=== PATIENT | female | born 1955 | race Caucasian/White ===

== ENCOUNTER → 2017-01-22 | Outpatient (CLI) | payer OTHER ==
[~2017-01-22] MED LIST: ATELVIA35 MG PO; ATIVAN PO; BENADRYL25 M1 PO; BRINTELLIX10 MG PO; CALCIUM + D 6001 TA1 PO; CALCIUM + D PO; CERTAGEN PO; EPIPEN0.3 MG/0.1 IM; FAMOTIDINE PO; FERROUS SULFATE PO; LORTAB 7.5-5001 TAB PO; LOVAZA1 G PO; MEDROL PO; PEN-VEE K PO; PERCOCET 10/3251 TAB PO; PERCOCET10 PO; PREDNISONE PO; PROZAC PO; PROZAC40 MG PO; REGLAN PO; TYLOX1 CAP 5/50 PO; VICODIN PO
--- NOTE | ~2017-01-22 | MR164 ---
[facility] A Service of [facility] RADIOLOGY TEXT RESULTS PATIENT: DEONTE ROSA LOCATION: [facility] : 59 UNIT #: [id number] AGE: [address]: Aubrey Delacruz MD SEX: F ORDER DR: [id number] [facility] [address] [place], [place] [address] [id number] O MR#: [id number] Acc #: [id number] NAME: DEONTE ROSA : 1955 SEX: F STUDY DATE/TIME: 01/22/2017 10:13 UNIT: [facility] ROOM: STUDY DESCRIPTION: MR Shoulder Wo Contrast Lt Attending Physician: Aubrey Delacruz M.D. Referring Physician: Aubrey Delacruz M.D. Ordering Physician: Aubrey Delacruz M.D. Primary Care Physician: Aubrey Delacruz M.D. MRI CENTER REPORT This report is preliminary unless electronic signature is present. EXAM MRI left shoulder without contrast - metal reduction technique 01/22/2017 HISTORY Order states left shoulder pain. History sheet states four rotator cuff tear surgeries. First was in 1997 and most recent in 2013. Repairs last for a short while then pain returns. Initial injury 1997. Presently has decreased range of motion in all directions and weakness in pull and push motions. COMPARISON MRI left shoulder 08/29/2013 and MRI arthrogram left shoulder 02/23/2015, left shoulder arthrogram 02/23/2015. FINDINGS There is minimal capsuloligamentous thickening and spurring at the AC joint. There are no definitive postoperative changes at the AC joint. Coracoclavicular and coracoacromial ligaments appear grossly intact. There is susceptibility artifact from reported prior rotator cuff surgery. There is no direct or indirect evidence of a recurrent full-thickness cuff tear. Infraspinatus, teres minor, and subscapularis tendons are unremarkable. There is no rotator cuff muscle atrophy. Compared to 02/23/2015, there is a new postoperative signal focus in the neck of the humerus most compatible with a biceps tenodesis fixation screw. The long head biceps tendon appears intact to the fixation screw. Glenohumeral joint shows no effusion, chondral/osteochondral lesion, or visible loose body. Glenoid labrum is unremarkable. [facility] A Service of [facility] RADIOLOGY TEXT RESULTS PATIENT: DEONTE ROSA LOCATION: [facility] : 59 UNIT #: [id number] AGE: [address]: Aubrey Delacruz MD SEX: F ORDER DR: There is no muscle edema or atrophy. IMPRESSION 1. Metal reduction techniques were utilized secondary to a significant susceptibility artifact in the region of the greater tuberosity in this patient with reported numerous rotator cuff repairs. 2. No full-thickness rotator cuff tear is demonstrated. 3. Mild acromioclavicular joint arthrosis. 4. Apparent interval bicipital tenodesis since the MRI arthrogram of 02/23/2015. The tendon appears intact to the level of the tenodesis fixation 5. Glenohumeral joint and labrum are within normal limits. Dictated by... Jennie Moscoso M.D. THIS IS AN ELECTRONICALLY VERIFIED REPORT Jennie Moscoso M.D. at 01/23/2017 10:39 AM AMOS/mukund TD: 01/22/2017 15:25 JOB #: [id number] MRI CENTER REPORT Page 1 of 1 COPY
== END | disposition home or self-care (01) ==
LOC: CMRI 09:37
DX: M25.512 Pain in left shoulder (principal); M75.121 Complete rotator cuff tear or rupture of right shoulder, not specified as traumatic; M19.011 Primary osteoarthritis, right shoulder
CPT/HCPCS: 73221

== ENCOUNTER → 2017-03-02 | Outpatient (CLI) | payer OTHER ==
--- NOTE | ~2017-03-02 | CR230 ---
[facility] A Service of [facility] & [facility] RADIOLOGY TEXT RESULTS PATIENT: DEONTE ROSA LOCATION: [facility] : 59 UNIT #: [id number] AGE: [address]: Hayden Baum MD SEX: F ORDER DR: [id number] [facility] [address] [place], [place] [address] [id number] O MR#: [id number] Acc #: [id number] NAME: DEONTE ROSA : 1955 SEX: F STUDY DATE/TIME: 03/02/2017 14:24 UNIT: [facility] ROOM: STUDY DESCRIPTION: CR Shoulder Min 2 View Rt Attending Physician: Hayden Baum M.D. Ordering Physician: Hadyen Baum M.D. Primary Care Physician: Aubrey Delacruz M.D. MEDICAL IMAGING REPORT This report is preliminary unless electronic signature is present EXAM Right shoulder, 3 views, 03/02/2017 HISTORY Right shoulder pain and decreased range of motion right shoulder for 2 weeks. Patient was walking dog and dog pulled away from her, injuring shoulder. FINDINGS AP view with internal and external rotation of the shoulder girdle shows satisfactory relationship of the humeral head and glenoid fossa. The joint space is normal. There is no identifiable fracture or dislocation or bony destructive process about the shoulder girdle anatomy. The acromioclavicular joint is normal. There is no radiopaque foreign body in the region. IMPRESSION Normal shoulder. Dictated by... Dioni Black M.D. THIS IS AN ELECTRONICALLY VERIFIED REPORT Dioni Black M.D. at 03/03/2017 9:02 AM ОЛЕГ/darshana TD: 03/02/2017 22:43 JOB #: [id number] MEDICAL IMAGING REPORT Page 1 of 1 COPY
--- NOTE | ~2017-03-02 | CR157 ---
[facility] A Service of [facility] & [facility] RADIOLOGY TEXT RESULTS PATIENT: DEONTE ROSA LOCATION: [facility] : 59 UNIT #: [id number] AGE: [address]: Hayden Baum MD SEX: F ORDER DR: [id number] [facility] [address] [place], [place] [address] [id number] O MR#: [id number] Acc #: [id number] NAME: DEONTE ROSA : 1955 SEX: F STUDY DATE/TIME: 03/02/2017 14:22 UNIT: [facility] ROOM: STUDY DESCRIPTION: CR Humerus Min 2 View Rt Attending Physician: Hayden Baum M.D. Ordering Physician: Hayden Baum M.D. Primary Care Physician: Aubrey Delacruz M.D. MEDICAL IMAGING REPORT This report is preliminary unless electronic signature is present EXAM Right humerus two views 03/02/2017 HISTORY Right upper extremity pain, right shoulder pain for 2 weeks. FINDINGS Patient was walking dog 2 weeks ago and dog pulled away from her injuring right upper extremity. FINDINGS There is no evidence of fracture, dislocation, or radiopaque foreign body. No focal bone lesions are seen. IMPRESSION Normal humerus. Dictated by... Dioni Black M.D. THIS IS AN ELECTRONICALLY VERIFIED REPORT Dioni Black M.D. at 03/03/2017 9:03 AM ОЛЕГ/michelle TD: 03/02/2017 22:19 JOB #: [id number] MEDICAL IMAGING REPORT Page 1 of 1 COPY
== END | disposition home or self-care (01) ==
LOC: CRAD 13:51
DX: M25.511 Pain in right shoulder (principal)
CPT/HCPCS: 73030; 73060

== ENCOUNTER 2017-05-10 22:00 | Inpatient (IN) | payer OTHER ==
[~2017-05-10] VITALS: Ht 162.6 cm; Wt 55.3 kg
--- NOTE | ~2017-05-10 | DS ---
Unit #: [id number] #: [id number] Patient: DEONTE ROSA [id number] [facility] [address] [place] [address] [id number] I MR#: [id number] NAME: DEONTE ROSA ROOM: P258 Age: 61 Sex: F Admission Date: 05/11/2017 : 1955 Discharge Date: 05/20/2017 Attending Physician: Ion Burgess M.D. Primary Care Physician: Aubrey Delacruz M.D. DISCHARGE SUMMARY REASON FOR ADMISSION Depression and anxiety. DIAGNOSTIC STUDIES LABORATORY RESULTS: Unremarkable. HOSPITAL COURSE The patient was admitted to inpatient unit on 05/11/2017 and discharged on 05/20/2017. The patient continued to report severe anxiety, therefore Prozac was discontinued. The patient was treated with medication management, psychoeducation, psychotherapy, and structured milieu. The patient was responsive to treatment. The patient was subsequently discharged with a plan to follow up in outpatient program. DISCHARGE MEDICATIONS Zyprexa 5 mg at bedtime for mood stabilization, Klonopin 0.5 mg t.i.d. for anxiety, and Remeron 15 mg at bedtime for depression. DISCHARGE DIAGNOSES Psychiatric: Major depressive disorder, recurrent, severe, F33.2; agoraphobia with panic disorder, F40.01. Secondary diagnosis: Deferred. Medical diagnoses: History of osteoporosis, history of neck surgery, rotator cuff surgery. Stressors: Psychosocial stressors. DISCHARGE INSTRUCTIONS The patient to follow up in outpatient clinic as per social and political studies professor. CONDITION ON DISCHARGE The patient was pleasant and cooperative. Denied any psychotic symptom or any suicidal ideation. PROGNOSIS Guarded. DIET AND ACTIVITY As tolerated. Unit #: [id number] #: [id number] Patient: DEONTE ROSA Dictated by... Ion Burgess M.D. SZC/olga TD: 05/20/2017 17:25 JOB #: [id number] DISCHARGE SUMMARY Page 1 of 1 X Ion Burgess MD X DISCHARGE SUMMARY
--- NOTE | ~2017-05-10 | PN ---
Unit #: [id number] #: [id number] Patient: DEONTE ROSA [id number] [facility] [address] [place] [address] [id number] I MR#: [id number] NAME: DEONTE ROSA ROOM: P258 Age: 61 Sex: F Admission Date: 05/11/2017 : 1955 Attending Physician: Ion Burgess M.D. Admitting Physician: Ion Burgess M.D. Primary Care Physician: Savannah Robbins PROGRESS NOTES DATE 05/16/2017 DISCUSSION Ms. Neil is a 61-year-old female. The patient continues to report having problem with a tremor, and anxiety, wanted to take high dose of Klonopin. The patient currently on Remeron, Klonopin, Restoril combination. The patient was able to contract for safety, redirectable, cooperative. REVIEW OF SYSTEMS Complete review of systems unremarkable. MENTAL STATUS EXAMINATION General appearance: Patient dressed casually, thin built, tremors noted. Attention span and concentration, fair. Oriented in time, place, and person. Mood and affect, labile. Speech, monotone. Thought process, concrete. The patient denied any thoughts of harming self or others but somewhat guarded. Recent and remote memory, poor. Insight and judgment, poor. DIAGNOSIS Bipolar mood disorder, NOS. ASSESSMENT/PLAN Advised to continue with the current medication and therapeutic protocol, and if needed consider further adjustment of medication. Dictated by... Savannah Rice/taj TD: 05/18/2017 08:22 JOB #: [id number] Unit #: [id number] #: [id number] Patient: DEONTE ROSA PROGRESS NOTES Page 1 of 1 X Ion Burgess MD PROGRESS NOTE
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
--- NOTE | ~2017-05-10 | HP ---
Unit #: [id number] #: [id number] Patient: JOLYNN ROSA [id number] [facility] [address] [place] [address] [id number] I MR#: [id number] NAME: JOLYNN ROSA ROOM: P121 Age: 61 Sex: F Admission Date: 05/11/2017 : 1955 Attending Physician: Ion Burgess M.D. Admitting Physician: Ion Burgess M.D. Primary Care Physician: Aubrey Delacruz M.D. HISTORY AND PHYSICAL HISTORY OF PRESENT ILLNESS Jolynn is a 61-year-old female admitted on 05/11/[address] [place] [address] for suicidal ideation. PAST MEDICAL HISTORY Astrocytoma PAST SURGICAL HISTORY 1. Rough rotator cuff surgical repair times four. 2. Next surgery times four. 3. section times one. 4. Bilateral tubal ligation. 5. Astrocytoma surgical removal. SOCIAL HISTORY He smokes one pack of cigarettes daily. No alcohol or illegal drug use. She is currently from her and living with her daughter. FAMILY HISTORY Noncontributory. REVIEW OF SYSTEMS CONSTITUTIONAL: No fever or chills. HEENT: Denies any sore throat, ear pain or runny nose. CARDIOVASCULAR: Denies chest pain, irregular heart rhythm or palpitations. CHEST: Denies shortness of breath or cough. No hemoptysis. GASTROINTESTINAL: Denies nausea, vomiting, diarrhea or chronic constipation. ENDOCRINE: Denies history of increased thirst or urination. No recent significant weight loss or gain. GENITOURINARY: Denies dysuria, frequency, or hematuria. SKIN: Denies any rashes. HEMATOLOGIC: Denies history of increased bleeding or bruising. MUSCULOSKELETAL: Denies any hot, swollen joints. No generalized muscle pain. NEUROLOGIC: Denies problems with vision or speech. No frequent, severe headaches. No numbness, tingling or weakness in any extremities. Denies loss of bladder or bowel control. CURRENT MEDICATIONS Unit #: [id number] #: [id number] Patient: JOLYNN ROSA 1. Prozac 2. Percocet ALLERGIES No known drug allergies. PHYSICAL EXAMINATION GENERAL: Alert, oriented, in no acute distress. VITAL SIGNS: Blood pressure 145/81, heart rate 62, respirations 18, temperature 98.7. HEIGHT: 5 foot 4 inches. WEIGHT: 103 pounds. SKIN: Warm and dry without rash or lesion. HEENT: Normocephalic. TMs not viewed. Oral and nasal passages clear. Conjunctivae clear. PERRLA. EOMs intact. NECK: Supple without lymphadenopathy or thyromegaly. HEART: Regular rate and rhythm without murmur. LUNGS: Clear. ABDOMEN: Soft, nontender, without masses or hepatosplenomegaly. : Not done. EXTREMITIES: No evidence of cyanosis, clubbing or edema. Moves all without focal deficit. NEUROLOGICAL: Grossly within normal limits. Cranial Nerves: II: Visual blackmon are intact. III, IV AND : Extraocular movements are intact. Pupils are equal, round and reactive to light. V: Facial sensation is grossly normal. VII: Facial movements and expression are normal. VIII: Auditory acuity grossly intact. IX, X: Uvula is midline. Phonation is normal. XI: Patient shrugs shoulders and turns head normally. XII: Tongue protrudes in the midline. Sensory and Motor Function: Sensory and motor sensation is grossly normal. Motor: moves all extremities well. Coordination: Gait is normal. Deep Tendon Reflexes: Intact. IMPRESSION 1. Psychiatric admission. 2. History of astrocytoma. RECOMMENDATIONS Psychiatric, per psychiatrist. MEDICAL: I see no contraindications to participating in facility's activities. MEDICAL PROGNOSIS Good. MEDICAL CONDITION Stable. Dictated by... Sara Herndon A.P.R.N. Unit #: [id number] #: [id number] Patient: JOLYNN ROSA BRITTANI/pooja TD: 05/12/2017 00:59 JOB #: [id number] HISTORY AND PHYSICAL Page 1 of 1 X SARA MAKI APRN HISTORY AND PHYSICAL
--- NOTE | ~2017-05-10 | PN ---
Unit #: [id number] #: [id number] Patient: DEONTE ROSA [id number] [facility] [address] [place] [address] [id number] I MR#: [id number] NAME: DEONTE ROSA ROOM: P258 Age: 61 Sex: F Admission Date: 05/11/2017 : 1955 Attending Physician: Ion Burgess M.D. Admitting Physician: Ion Burgess M.D. Primary Care Physician: Savannah Robbins PROGRESS NOTES DATE 05/13/2017 DISCUSSION Ms. Neil is a 61-year-old female, seen on 05/13/2017. The patient interviewed, chart reviewed, and obtained information from the nursing staff. The patient was cooperative reported still having a lot of anxiety. The patient received a p.r.n. Ativan, continued to be isolative, flat affect, sad and depressed, anxious, still feeling hopeless, worthless, passive SI, severe anxiety, also tremors. REVIEW OF SYSTEMS Complete review of systems unremarkable. MENTAL STATUS EXAMINATION General appearance: Patient thin-built, dressed casually. Attention span and concentration, fair. Oriented in time, place, and person. Mood and affect, sad and depressed. Speech, monotone. Thought process, concrete. The patient reported having passive SI, denied homicidal ideation or psychotic symptoms. Recent and remote memory, poor. Insight and judgment, poor. DIAGNOSIS Major depressive disorder, recurrent, severe. ASSESSMENT/PLAN Advised to continue with the current medication and therapeutic protocol, and if needed consider further adjustment of medication. Dictated by... Savannah Rice/taj TD: 05/14/2017 12:41 JOB #: [id number] Unit #: [id number] #: [id number] Patient: DEONTE ROSA PROGRESS NOTES Page 1 of 1 X Ion Burgess MD PROGRESS NOTE
--- NOTE | ~2017-05-10 | PN ---
Unit #: [id number] #: [id number] Patient: DEONTE ROSA [id number] [facility] [address] [place] [address] [id number] I MR#: [id number] NAME: DEONTE ROSA ROOM: P258 Age: 61 Sex: F Admission Date: 05/11/2017 : 1955 Attending Physician: Ion Burgess M.D. Admitting Physician: Ion Burgess M.D. Primary Care Physician: Savannah Robbins PROGRESS NOTES DATE OF SERVICE 05/14/2017 DISCUSSION Ms. Neil is a 61-year-old female seen on 05/14/2017. The patient interviewed, chart reviewed. Obtained information from nursing staff. The patient continues to report having severe anxiety and panic attack. Currently medications are not working. Tolerating medication fairly well. The patient still feeling sad, depressed, anxious, nervous. Vital Signs: Stable, 98.4, 68, 20, 153/87. Complete Review of Systems: Unremarkable. MENTAL STATUS EXAMINATION General Appearance: The patient thin built, dressed casually. Attention span, concentration: Fair. Oriented in time, place, and person. Mood and affect labile. Sad, depressed. Speech: Slow in volume. Thought process: Circumstantial. The patient denied any thoughts of harming self or others but passive SI, withdrawn, isolative, guarded, severe anxiety attack, panic attack. Recent and remote memory: Poor. Insight and judgment: Poor. DIAGNOSES 1. Major depressive disorder, recurrent. 2. Anxiety disorder not otherwise specified. ASSESSMENT/PLAN Advised to continue with current medication with a plan to give a trial with Klonopin 0.5, 3 times a day. The patient does not have any history of any addiction, considering the patient's severe anxiety. Vistaril is not working. We will try low dose. If needed, consider further adjustment of medication. Continue with the inpatient programming at this time. Dictated by... Savannah Rice/jesus TD: 05/15/2017 12:35 JOB #: [id number] Unit #: [id number] #: [id number] Patient: DEONTE ROSA PROGRESS NOTES Page 1 of 1 X Ion Burgess MD PROGRESS NOTE
--- NOTE | ~2017-05-10 | PN ---
Unit #: [id number] #: [id number] Patient: DEONTE ROSA [id number] [facility] [address] [place] [address] [id number] MR#: [id number] NAME: DEONTE ROSA ROOM: P258 Age: 61 Sex: F Admission Date: 05/11/2017 : 1955 Attending Physician: Ion Burgess M.D. Admitting Physician: Ion Burgess M.D. Primary Care Physician: Savannah Robbins PROGRESS NOTES DATE 05/12/2017 DISCUSSION Ms. Neil is a 61-year-old female. The patient reported having a lot of anxiety, withdrawn, isolative, flat affect, sad, dysphoric, mood anxious. The patient's vital signs, stable, 98.0, 84, 16, and 142/64. The patient reported still having problems with sleep, anxiety-depression. REVIEW OF SYSTEMS Review of systems unremarkable. MENTAL STATUS EXAMINATION General appearance: Patient dressed casually. Attention span and concentration, fair. Oriented in place and person. Mood and affect, labile. Speech, monotone. Thought process, concrete. The patient reported having anxiety attacks, anxious, nervous, sad, and depressed, received p.r.n. Ativan for severe anxiety attack. Recent and remote memory, poor. Insight and judgment, poor. DIAGNOSES 1. Major depressive disorder, recurrent. 2. Anxiety disorder, NOS. ASSESSMENT/PLAN Advised to continue with the current medication and therapeutic protocol, and if needed consider further adjustment of medication. Dictated by... Savannah Rice/taj TD: 05/13/2017 09:12 JOB #: [id number] Unit #: [id number] #: [id number] Patient: DEONTE ROSA PROGRESS NOTES Page 1 of 1 X Ion Burgess MD X PROGRESS NOTE
--- NOTE | ~2017-05-10 | PN ---
Unit #: [id number] #: [id number] Patient: JOLNYN SINGH [id number] [facility] [address] [place] [address] [id number] MR#: [id number] NAME: JOLYNN SINGH ROOM: P258 Age: 61 Sex: F Admission Date: 05/11/2017 : 1955 Attending Physician: Ion Burgess M.D. Admitting Physician: Ion Burgess M.D. Primary Care Physician: Savannah Robbins PROGRESS NOTES DATE OF SERVICE: 05/17/2017 DISCUSSION Jolynn Singh is a 61-year-old female, seen on 05/17/2017. The patient reports that she does not want Vistaril, still somewhat preoccupied about getting her Klonopin. The patient was somewhat unsteady, but no falls. Anxious and nervous, but denied any suicidal or homicidal ideation. Isolative and flat affect. REVIEW OF SYSTEMS Complete review of systems unremarkable. MENTAL STATUS EXAMINATION General appearance, the patient dressed in hospital attire. Attention span and concentration, poor. Oriented in place and person. Mood and affect, sad and dysphoric. Speech, regular rate. Thought process, goal directed. The patient denied any thoughts of harming self or others. Recent and remote memory, poor. Insight and judgment, poor. DIAGNOSES Mood disorder, not otherwise specified and anxiety disorder, not otherwise specified. ASSESSMENT AND PLAN Advised to continue with current medication and therapeutic protocol. If needed, consider further adjustment of medication. Dictated by... Savannah Rice/olga TD: 05/17/2017 17:07 JOB #: [id number] Unit #: [id number] #: [id number] Patient: JOLYNN SINGH MISAELNATI PROGRESS NOTES Page 1 of 1 X Ion Burgess MD PROGRESS NOTE
--- NOTE | ~2017-05-10 | PN ---
Unit #: [id number] #: [id number] Patient: DEONTE ROSA [id number] [facility] [address] [place] [address] [id number] MR#: [id number] NAME: DEONTE ROSA ROOM: P258 Age: 61 Sex: F Admission Date: 05/11/2017 : 1955 Attending Physician: Ion Burgess M.D. Admitting Physician: Ion Burgess M.D. Primary Care Physician: Savannah Robbins NOTES DATE OF SERVICE 05/18/2017 DISCUSSION Ms. Neil is a 61-year-old female seen on 05/18/2017. The patient interviewed, chart reviewed. Obtained information from nursing staff. The patient tolerating medication fairly well. Reported still feeling anxious, nervous. The patient reported still feeling sad, depressed. Decreased appetite. Still having problem with the anxiety. The patient's discharge was canceled today as the patient was confused yesterday but able to answer questions appropriately. Complete Review of Systems: Unremarkable. MENTAL STATUS EXAMINATION General Appearance: The patient thin built, dressed casually. Attention span, concentration: Fair. Oriented in time, place, and person. Mood and affect: Sad, dysphoric, labile. Speech: Monotone. Thought process: [place]. The patient denied any thoughts of harming self or others but somewhat guarded, anxious. Recent and remote memory: Poor. Insight and judgment: Poor. DIAGNOSIS Major depressive disorder, recurrent, severe. ASSESSMENT/PLAN Advised to continue with current medication and therapeutic protocol. If needed, consider further adjustment of medication. Dictated by... Savannah Rice/jesus TD: 05/19/2017 15:06 JOB #: [id number] Unit #: [id number] #: [id number] Patient: DEONTE ROSA PROGRESS NOTES Page 1 of 1 X Ion Burgess MD PROGRESS NOTE
--- NOTE | ~2017-05-10 | PN ---
Unit #: [id number] #: [id number] Patient: JOLYNN SINGH [id number] [facility] [address] [place] [address] [id number] MR#: [id number] NAME: JOLYNN SINGH ROOM: P258 Age: 61 Sex: F Admission Date: 05/11/2017 : 1955 Attending Physician: Ion Burgess M.D. Admitting Physician: Ion Burgess M.D. Primary Care Physician: Savannah Robbins PROGRESS NOTES DATE 05/19/2017 DISCUSSION Ms. Jolynn Singh is a 61-year-old female, seen on 05/19/2017. The patient interviewed, chart reviewed, and obtained information from the nursing staff. The patient continues to report feeling anxious but reports mood is better able to contract for safety, able to participate in programming, was seclusive, isolative. REVIEW OF SYSTEMS Complete review of systems unremarkable. MENTAL STATUS EXAMINATION General appearance: Patient thin-built, dressed casually. Attention span and concentration, fair. Oriented in time, place, and person. Mood and affect, sad, dysphoric, anxious. Speech, regular rate. Thought process, goal-directed. The patient denied any thoughts of harming self or others, denied any psychotic symptoms. Recent and remote memory, fair. Insight and judgment, [id number]. DIAGNOSES 1. Major depressive disorder, recurrent. 2. Anxiety disorder, NOS. ASSESSMENT/PLAN Advised to continue with the current medication and therapeutic protocol, and if needed consider further adjustment of medication. Dictated by... Savannah Rice/taj TD: 05/20/2017 06:33 JOB #: [id number] Unit #: [id number] #: [id number] Patient: JOLYNN SINGH PROGRESS NOTES Page 1 of 1 X Ion Burgess MD PROGRESS NOTE
--- NOTE | ~2017-05-10 | PN ---
Unit #: [id number] #: [id number] Patient: DEONTE ROSA [id number] [facility] [address] [place] [address] [id number] MR#: [id number] NAME: DEONTE ROSA ROOM: P258 Age: 61 Sex: F Admission Date: 05/11/2017 : 1955 Attending Physician: Ion Burgess M.D. Admitting Physician: Ion Burgess M.D. Primary Care Physician: Savannah Robbins PROGRESS NOTES DATE 05/15/2017 DISCUSSION Ms. Neil is a 61-year-old female interviewed, chart reviewed, obtain information from nursing staff. The patient continues to report feeling sad, depressed, anxious, having a lot of tremors. The patient's vital signs stable 98.1, 65, 149/116. The patient continues to ask for anxiety medication complaining of anxiety and tremor. The patient's Ativan was discontinued. Advise to discontinue Prozac. The patient is on Klonopin and Remeron. Plan to consider adjusting the dosage of Remeron. The patient is also on vistaril. Complete review of systems unremarkable. MENTAL STATUS EXAMINATION General appearance, the patient dressed casually, thin built, sad, depressed, anxious, nervous. Attention span and concentration fair. Oriented to place and person. Mood and affect sad, depressed, flat. Speech slow in volume. Thought process circumstantial. The patient reported having passive suicidal ideation, withdrawn, sad, dysphoric, anxious, hand tremors. Recent and remote memory poor. Insight and judgement poor. DIAGNOSES 1. Major depressive disorder recurrent. 2. Anxiety disorder NOS. ASSESSMENT/PLAN Advise to continue with current medication and therapeutic protocol with a plan to increase Remeron to 15 mg at bedtime. Discontinue Prozac and consider increasing the dosage of vistaril. Dictated by... Savannah Rice/pooja TD: 05/17/2017 23:09 JOB #: [id number] Unit #: [id number] #: [id number] Patient: DEONTE ROSA PROGRESS NOTES Page 1 of 1 X Ion Burgess MD X PROGRESS NOTE
[2017-05-11 09:36] LABS: BASOPHIL# 0.1 X10e3 (0-0.3); EOSINOPHIL# 0.1 X10e3 (0-0.7); EOSINOPHIL% 1.3 % (0.0-7.0); HEMATOCRIT 44.8 % (35.0-45.0); HEMOGLOBIN 14.6 gm/dL (12.0-16.0); LYMPHOCYTE# 1.9 X10e3 (1.0-3.5); LYMPHOCYTE% 20.5 % (17.0-45.0); MEAN CELL VOLUME 91.5 FL (83-96); MEAN CORPUSCULAR HEMOGLOBIN 29.8 PG (28-34); MEAN CORPUSCULAR HGB CONC 32.6 g/dL (30-36); MONOCYTE% 10.6 % (3.0-12.0); NEUTROPHIL# 6.2 X10e3 (1.5-7.1); NEUTROPHIL% 66.6 % (40-75); PLATELET COUNT 313 X10e3 (140-420); RED CELL DISTRIBUTION WIDTH 13.7 % (11.0-15.5); WHITE BLOOD COUNT 9.3 X10e3 (4.0-10.5)
[2017-05-11 09:39] LABS: DIFF IND NO
[2017-05-11 09:47] LABS: ALBUMIN SERUM 4.3 g/dL (3.5-5.0); BILIRUBIN,TOTAL 0.7 mg/dL (0.2-2.0); BUN/CREATININE RATIO 27.14; CALCIUM SERUM 9.6 mg/dL (8.4-10.2); CREATININE SERUM 0.7 mg/dL (0.6-1.4); GLOM FILT RATE Estimated 94.8 mL/min (>60); POTASSIUM 4.3 mmol/L (3.5-5.1); PROTEIN TOTAL SERUM 6.5 g/dL (6.0-8.3)
[2017-05-18 12:38] LABS: URINE APPEARANCE CLEAR; URINE BILIRUBIN NEG (NEG); URINE BLOOD NEG (NEG); URINE COLOR YELLOW; URINE GLUCOSE NEG (NEG); URINE KETONE 1+ (NEG); URINE LEUKOCYTE ESTERASE NEG (NEG); URINE NITRATE NEG (NEG); URINE PROTEIN NEG (NEG); URINE SPECIFIC GRAVITY 1.028 (1.003-1.035); URINE UROBILINOGEN 0.2 MG/DL (NEG)
[2017-05-18 13:27] LABS: AMPHETAMINE NEG (NEG); BARBITURATES NEG (NEG); BENZODIAZEPINES NEG (NEG); COCAINE NEG (NEG); MARIJUANA NEG (NEG); OPIATES POS (NEG); TRICYCLIC ANTIDEPRESSANTS NEG (NEG); U METHADONE NEG (NEG)
== END 2017-05-20 14:00 | disposition home or self-care (01) | DRG 885 ==
LOC: P1S 05-11 02:35 → P2L 05-11 02:35
PROVIDERS: Psychiatry & Neurology Psychiatry
DX: F33.2 Major depressive disorder, recurrent severe without psychotic features (principal); R45.851 Suicidal ideations; F39 Unspecified mood [affective] disorder; F40.01 Agoraphobia with panic disorder; F41.9 Anxiety disorder, unspecified; M81.0 Age-related osteoporosis without current pathological fracture; Z98.51 Tubal ligation status; F17.210 Nicotine dependence, cigarettes, uncomplicated
CPT/HCPCS: 80053; 80307; 81003; 85025